=== PATIENT | female | born 2000 | race Asian ===

== ENCOUNTER 2024-10-27 21:29 | Emergency (ER) | payer OTHER ==
[~2024-10-27] VITALS: Ht 157.5 cm; Wt 63.0 kg
--- NOTE | 2024-10-27 21:48 | ED.PDOC ---
[employer] HPI Comments 24-year-old female who came to ER for abdominal pain. Patient is a , a pproximately 10 weeks . Patient's OBGYN doctor is Dr. beckman. An ultrasound was done couple of weeks ago which showed a normal IUP. States few hours ago she started experiencing epigastric abdominal pain with nausea and vomiting. Symptoms occurred after meal. 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 Hx 1 Para 0 Family History Family History: Reviewed,noncontributory to illness Social History Smoker: Non-Smoker Alcohol: Denies ETOH Use Drugs: Denies Drug Use Lives In: Home Constitutional: denies: chills, diaphoresis, fatigue, fever, malaise, sweats, weakness, others EENTM: denies: blurred vision, double vision, ear bleeding, ear discharge, ear drainage, ear pain, ear ringing, eye pain, eye redness, hearing loss, mouth pain, mouth swelling, nasal discharge, nose bleeding, nose congestion, nose pain, photophobia, tearing, throat pain, throat swelling, voice changes, others Respiratory: denies: cough, hemoptysis, orthopnea, SOB at rest, shortness of breath, SOB with excertion, stridor, wheezing, others Cardiovascular: denies: chest pain, dizzy spells, diaphoresis, Dyspnea on exertion, edema, irregular heart beat, left arm pain, lightheadedness, palpitations, PND, syncope, others Gastrointestinal: reports: abdominal pain, nausea, vomiting; denies: abdomen distended, blood streaked bowels, constipated, diarrhea, dysphagia, difficulty swallowing, hematemesis, melena, poor appetite, poor fluid intake, rectal bleeding, rectal pain, others Genitourinary: denies: abnormal vagina bleeding, burning, dyspareunia, dysuria, flank pain, frequency, hematuria, incontinence, pain, , vagina disch arge, urgency, others Neurological: denies: dizziness, fainting, headache, left sided numbness, left sided weakness, numbness, paresthesia, pre-existing deficit, right sided numbness, right sided weakness, seizure, speech problems, tingling, tremors, weakness, others Musculoskeletal: denies: back pain, gout, joint pain, joint swelling, muscle pain, muscle stiffness, neck pain, others Integumetry: denies: bruises, change in color, change in hair/nails, dryness, laceration, lesions, lumps, rash, wounds, others Allergic/Immunocompromised: denies: Difficulty Healing, Frequent Infections, Hives, Itching, others Hematologic/Lymphatic: denies: anemia, blood clots, easy bleeding, easy bruising, swollen glands, others Endocrine: denies: excessive hunger, excessive sweating, excessive thirst, excessive urination, flushing, intolerance to cold, intolerance to heat, unexplained weight gain, unexplained weight loss, others Psychiatric: denies: anxiety, bipolar disorder, depression, hopeless, panic disorder, schizophrenia, sleepless, suicidal, others Physical Exam General Appearance: No Apparent Distress, Normal HEENT: Normal ENT Inspection, Pharynx Normal, TMs Normal Neck: Full Range of Motion, Non-Tender, Normal, Normal Inspection Respiratory: Chest Non-Tender, Lungs Clear, No Accessory Muscle Use, No Respiratory Distress, Normal Breath Sounds Cardiovascular: No Edema, No JVD, No Murmur, No Gallop, Normal Peripheral Pulses, Regular Rate/Rhythm Breast Exam: Deferred Gastrointestinal: Epigastric, No Organomegaly, No Pulsatile Mass, Normal Bowel Sounds, Soft, Tenderness Genitalia: Deferred Pelvic: Deferred Rectal: Deferred Extremities: No calf tenderness, Normal capillary refill, Normal inspection, Normal range of motion, Non-tender, No pedal edema Musculoskeletal : Apperance: Normal Neurologic: Alert, sr. manager II-XII nml as Tested, No Motor Deficits, Normal Affect, Normal Mood, No Sensory Deficits Cerebellar Function: Normal Reflexes: Normal Skin: Dry, Normal Color, Warm Lymphatic: No Adenopathy Was a procedure done? Was a procedure done?: No Differential Diagnosis (AIRPORT OPERATIONS COORDINATOR) Vaginal Bleeding: UTI Vaginal Discharge: , UTI Comments Pancreatitis, GERD, gastritis, Gallstones, hyperemesis gravidarum X-Ray, Labs, Meds, VS Vital Signs Date Time Temp Pulse Resp B/P (MAP) Pulse Ox O2 Delivery O2 Flow Rate FiO2 10/27/24 21:35 97.6 94 16 110/71 97 97.6 Lab Test 10/27/24 22:10 Range/Units White Blood Count 10.4 4.4-10.8 10^3/uL Red Blood Count 4.31 4.0-5.20 10^6/uL Hemoglobin 13.3 12.2-16.2 g/dL Hematocrit 39.1 36.0-46.0 % Mean Corpuscular Volume 90.6 80.0-100.0 fL Mean Corpuscular Hemoglobin 30.8 28.0-32.0 pg Mean Corpuscular Hemoglobin Concent 34.0 32.0-36.0 g/dL Red Cell Distribution Width 12.7 11.8-14.3 % Platelet Count 208 140-450 10^3/uL Mean Platelet Volume 8.7 6.9-10.8 fL Neutrophils (%) (Auto) 72.7 37.0-80.0 % Lymphocytes (%) (Auto) 19.6 10.0-50.0 % Monocytes (%) (Auto) 6.1 0.0-12.0 % Eosinophils (%) (Auto) 1.4 0.0-7.0 % Basophils (%) (Auto) 0.2 0.0-2.0 % Neutrophils # (Auto) 7.5 1.6-8.6 10 ^3/uL Lymphocytes # (Auto) 2.0 0.4-5.4 10 ^3/uL Monocytes # (Auto) 0.6 0-1.3 10 ^3/uL Eosinophils # (Auto) 0.1 0-0.8 10 ^3/uL Basophils # (Auto) 0 0-0.2 10 ^3/uL Nucleated Red Blood Cells 0.1 % Sodium Level 136 136-145 mmol/L Potassium Level 4.3 3.5-5.1 mmol/L Chloride Level 103 98-107 mmol/L Carbon Dioxide Level 25 20-31 mmol/L Anion Gap 8 5-15 Blood Urea Nitrogen < 5 L 9-23 mg/dL Creatinine 0.54 L 0.550-1.02 mg/dL Glomerular Filtration Rate Calc 131 >90 mL/min BUN/Creatinine Ratio 9.3 L 10.0-20.0 Serum Glucose 87 74-106 mg/dL Calcium Level 9.2 8.7-10.4 mg/dL Total Bilirubin 0.4 0.2-1.0 mg/dL Aspartate Amino Transferase (AST) 20 13-40 U/L Alanine Aminotransferase (ALT) 16 7-40 U/L Alkaline Phosphatase 49 46-116 U/L Total Protein 7.3 5.7-8.2 g/dL Albumin 4.2 3.2-4.8 g/dL Lipase 38 12-53 U/L PROCEDURE(s): GBUS - GALLBLADDER REASON: epigastric pain ORDER NUMBER(s): [id number], ACCESSION NUMBER(s): [id number] CLINICAL INFORMATION: 24 years old, Female; epigastric pain. TECHNIQUE: Grayscale sonographic imaging of the right upper quadrant of the abdomen was performed, assisted by color Doppler techniques. COMPARISON: None FINDINGS: The gallbladder wall measures 2 mm in thickness, within normal limits. No stones are seen.Negative reported sonographic Norman sign. The common bile duct measures 4 mm in diameter, within normal limits. The liver is normal in size and echotexture. No focal lesions. The pancreas is partly obscured, likely by bowel gas. The visualized portions appear normal. The right kidney measures 9.7 cm. There is no hydronephrosis. Right renal cortical echogenicity and cortical thickness are within normal limits. IMPRESSION: 1. No acute sonographic abnormality. Time of 1ST Reevaluation: 21:45 Reevaluation 1ST: Unchanged Time of 2ND Reevaluation: 23:17 Reevaluation 2ND: Resolved Patient Education/Counseling: Diagnosis, Treatment, Prognosis, Need For Follow Up Family Education/Counseling: Diagnosis, Treatment, Prognosis, Need For Follow Up, No Family Present Comments Patient has epigastric discomfort completely resolved with Tylenol. 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 Patient's lipase is normal. Her chemistry and CBC are normal. She already had a OB ultrasound done about a week to a week and half ago which showed a normal IUP. She is stable to follow up with her doctor. Departure 1 Departure Time of Disposition: 23:19 Impression: Primary Impression: Epigastric pain Disposition: 01 HOME / SELF CARE / HOMELESS Condition: Good Discharged With: Self, Spouse Critical Care Note Critical Care Time?: No Stability Stability form required: No Heart Score Heart Score: Heart Score Response (Comments) Value History N/A 0 EKG N/A 0 Age N/A 0 Risk Factors N/A 0 Troponin N/A 0 Total 0 I personally scribed for NIRMALA DURÁN MD ([facility] on 10/27/24 at 21:48. Electronically submitted by Casey Martinez ([facility] I personally scribed for NIRMALA DURÁN MD ([facility] on 10/27/24 at 22:27. Electronically submitted by Casey Martinez ([facility] NIRMALA DURÁN MD Oct 27, 2024 21:48
[2024-10-27 22:19] LABS: Hematocrit 39.1 % (36.0-46.0); Hemoglobin 13.3 g/dL (12.2-16.2); Mean Corpuscular Hemoglobin 30.8 pg (28.0-32.0); Mean Corpuscular Volume 90.6 fL (80.0-100.0); Nucleated Red Blood Cells % 0.1 %
--- NOTE | 2024-10-27 22:24 | DVH ---
CLINICAL INFORMATION: 24 years old, Female; epigastric pain. TECHNIQUE: Grayscale sonographic imaging of the right upper quadrant of the abdomen was performed, a ssisted by color Doppler techniques. COMPARISON: None FINDINGS: The gallbladder wall measures 2 mm in thickness, within normal limits. No stones are seen.Negative reported sonographic Norman sign. The common bile duct measures 4 mm in diameter, within normal limit s. The liver is normal in size and echotexture. No focal lesions. The pancreas is partly obscured, likely by bowel gas. The visualized portions appear normal. The right kidney measures 9.7 cm. There is no hydronephrosis. Right renal cortical echogenicity an d cortical thickness are within normal limits. IMPRESSION: 1. No acute sonographic abnormality.
[2024-10-27 22:46] LABS: Alanine Aminotransferase 16 U/L (7-40); Albumin 4.2 g/dL (3.2-4.8); Alkaline Phosphatase 49 U/L (46-116); Anion Gap 8 (5-15); Bilirubin, Total 0.4 mg/dL (0.2-1.0); Calcium 9.2 mg/dL (8.7-10.4); Carbon Dioxide 25 mmol/L (20-31); Chloride 103 mmol/L (98-107); Glucose 87 mg/dL (74-106); Lipase 38 U/L (12-53); Potassium 4.3 mmol/L (3.5-5.1); Sodium 136 mmol/L (136-145); Total Protein 7.3 g/dL (5.7-8.2)
[2024-10-27 22:51] LABS: BUN/Creatinine Ratio 9.3 (10.0-20.0); Blood Urea Nitrogen < 5 mg/dL (9-23)
[2024-10-27 23:32] VITALS: BP 111/75; PULSE 70; RESP 17; TEMP 97.8; O2SAT 100
[2024-10-27] MEDS: ACETAMINOPHEN 325 MG TAB PO ONE (23:32)
[2024-10-27] MEDS ORDERED: CLOT1CRE56 TOP (23:39)
== END 2024-10-27 23:48 | disposition home or self-care (01) ==
LOC: EDBD 21:29 → ER 21:29
DX: O26.891 Other specified pregnancy related conditions, first trimester (principal); O21.9 Vomiting of pregnancy, unspecified; Z3A.10 10 weeks gestation of pregnancy
CPT/HCPCS: 36415; 76705; 80053; 83690; 85025